=== PATIENT | male | born 1980 | race Caucasian/White ===

== ENCOUNTER → 2017-11-09 | Outpatient (CLI) | payer OTHER ==
[~2017-11-09] MED LIST: AZIT250 PO; Bactrim Ds Tab1 EACH PO; CEFU250T47; CEPH500 PO; CLIN300 PO; CRUTCH2 USE; CRUTCH4 USE; CYCL10 PO; ERYES400 PO; HYDACE5 PO; HYDACE5325 PO; HYDR1TAB94 PO; IBUP600 PO; IBUP800 PO; LINE600 PO; META800 PO; Monodox100 MG PO; NAPR500 PO; Norco 5-325 Ta1 EACH PO; RXHYDACE PO; SULTRIDS PO
[2017-11-10 15:17] LABS: Source Urine
[2017-11-12 11:17] LABS: HCV Non Reactive (NR)
== END ==
LOC: LAB EV 13:55
PROVIDERS: General Practice
DX: Z72.51 High risk heterosexual behavior (principal)
CPT/HCPCS: 80074; 86592; 87389; 87491; 87591; 87661

== ENCOUNTER 2018-04-27 13:00 | Emergency (ER) | payer OTHER ==
[~2018-04-27] VITALS: Ht 177.8 cm; Wt 99.8 kg
[~2018-04-27 13:00] MED LIST changes: -Bactrim Ds Tab1 EACH PO; -CEFU250T47; -LINE600 PO; -Monodox100 MG PO
[2018-04-27 13:29] LABS: BASOPHILS ABSOLUTE AUTO 0.02 K/mm3 (0.00-0.23); BASOPHILS PERCENT AUTO 0 % (0-2); EOSINOPHILS ABSOLUTE AUTO 0.13 K/mm3 (0.00-0.68); EOSINOPHILS PERCENT AUTO 1 % (0-6); Hematocrit 45.4 % (37.0-53.0); Hemoglobin 15.7 g/dL (13.5-17.5); IMMATURE GRAN ABSOLUTE AUTO 0.02 K/mm3 (0.00-0.10); IMMATURE GRAN PERCENT AUTO 0 % (0-1); LYMPHOCYTES ABSOLUTE AUTO 2.71 K/mm3 (0.84-5.20); LYMPHOCYTES PERCENT AUTO 27 % (21-46); MONOCYTES ABSOLUTE AUTO 0.87 K/mm3 (0.16-1.47); MONOCYTES PERCENT AUTO 9 % (4-13); Mean Corpuscular HGB Conc 34.6 g/dL (31.5-36.5); Mean Corpuscular Volume 87 fL (80-100); NEUTROPHILS ABSOLUTE AUTO 6.17 K/mm3 (1.96-9.15); NEUTROPHILS PERCENT AUTO 62 % (41-73); Platelet Count 344 K/mm3 (150-400); RDW Coefficient Variation 12.4 % (11.7-14.2); Red Blood Cell Count 5.24 M/mm3 (4.30-5.90); White Blood Cell Count 9.92 K/mm3 (4.00-11.30)
[2018-04-27 13:47] LABS: Alanine Aminotransfer (ALT/SGP 43 U/L (12-78); Albumin, Blood 3.7 g/dL (3.4-5.0); Albumin/Globulin Ratio 0.9 (0.8-1.8); Alk Phos 108 U/L (50-136); Anion Gap 8 mmol/L (6-16); Aspartate Aminotrans (AST/SGOT 23 U/L (12-37); Bilirubin, Total 0.9 mg/dL (0.1-1.0); Blood Urea Nitrogen 12 mg/dL (8-24); Bun/Creatinine Ratio 10.1 (12.0-20.0); CO2, Blood 29 mmol/L (21-32); Calcium, Blood 8.8 mg/dL (8.5-10.1); Chloride, Blood 104 mmol/L (98-108); Creatinine, Blood 1.19 mg/dL (0.60-1.20); Globulin, Blood 3.9 g/dL (2.2-4.0); Glomerular Filtration Rate >60 (60-); Glucose, Blood 106 mg/dL (70-99); Potassium, Blood 3.7 mmol/L (3.5-5.5); Sodium, Blood 141 mmol/L (136-145); Total Protein, Blood 7.6 g/dL (6.4-8.2)
[2018-04-27] MEDS ORDERED: HYDR1TAB94 PO (16:16)
== END 2018-04-27 16:32 | disposition home or self-care (01) ==
LOC: ER 13:00
PROVIDERS: Emergency Medicine
DX: R10.12 Left upper quadrant pain (principal); M79.81 Nontraumatic hematoma of soft tissue; F17.210 Nicotine dependence, cigarettes, uncomplicated; Z88.0 Allergy status to penicillin; Z87.442 Personal history of urinary calculi
CPT/HCPCS: 36415; 74176; 80053; 81000; 83690; 85025; 99284-25

== ENCOUNTER → 2018-07-07 | Outpatient (CLI) | payer OTHER ==
[~2018-07-07] MED LIST changes: +Bactrim Ds Tab1 EACH PO; +CEFU250T47; +LINE600 PO; +Monodox100 MG PO
== END | disposition home or self-care (01) ==
LOC: LAB EV 15:04 → LAB SHORT 15:04
DX: L03.119 Cellulitis of unspecified part of limb (principal)
CPT/HCPCS: 87070; 87075; 87205

== ENCOUNTER 2019-05-24 22:22 | Emergency (ER) | payer SELFPAY ==
[~2019-05-24] VITALS: Ht 177.8 cm; Wt 95.2 kg
[2019-05-25] MEDS ORDERED: IBU800 MG PO (00:04)
[2019-05-25] MEDS ORDERED: Norco 5-325 Ta1 EACH PO (00:04)
== END 2019-05-25 00:31 | disposition home or self-care (01) ==
LOC: ER 22:22
DX: S76.311A Strain of muscle, fascia and tendon of the posterior muscle group at thigh level, right thigh, initial encounter (principal); Z88.0 Allergy status to penicillin; Z87.442 Personal history of urinary calculi; X58.XXXA Exposure to other specified factors, initial encounter; Y93.55 Activity, bike riding
CPT/HCPCS: 73562-RT; 99283-25; A9270

== ENCOUNTER 2019-09-24 13:50 | Emergency (ER) | payer OTHER ==
[~2019-09-24] VITALS: Ht 177.8 cm; Wt 99.8 kg
[~2019-09-24 13:50] MED LIST changes: +IBU800 MG PO
[2019-09-24] MEDS ORDERED: Norco 5-325 Ta1 EACH PO (14:56)
== END 2019-09-24 15:11 | disposition home or self-care (01) ==
LOC: ER 13:50
DX: S62.324A Displaced fracture of shaft of fourth metacarpal bone, right hand, initial encounter for closed fracture (principal); Z88.0 Allergy status to penicillin; Z87.442 Personal history of urinary calculi; F17.210 Nicotine dependence, cigarettes, uncomplicated; W54.8XXA Other contact with dog, initial encounter
CPT/HCPCS: 29125; 73130; 99283-25

== ENCOUNTER 2020-09-21 16:03 | Emergency (ER) | payer OTHER ==
[~2020-09-21] VITALS: Ht 177.8 cm; Wt 99.8 kg
[2020-09-21] MEDS ORDERED: AMOCLA875 PO (16:41)
[2020-09-21] MEDS ORDERED: Norco 5-325 Ta1 EACH PO (17:27)
== END 2020-09-21 17:59 | disposition home or self-care (01) ==
LOC: ER 16:03
DX: S51.851A Open bite of right forearm, initial encounter (principal); F17.210 Nicotine dependence, cigarettes, uncomplicated; Z88.0 Allergy status to penicillin; Z87.442 Personal history of urinary calculi; W54.0XXA Bitten by dog, initial encounter
CPT/HCPCS: 12032; 73090; 99283-25; A9270-GY

== ENCOUNTER 2020-09-25 16:17 | Emergency (ER) | payer OTHER ==
[~2020-09-25] VITALS: Ht 177.8 cm; Wt 102.1 kg
[~2020-09-25 16:17] MED LIST changes: +AMOCLA875 PO
[2020-09-25] MEDS ORDERED: Cipro500 MG PO (17:00)
[2020-09-25] MEDS ORDERED: Cleocin HCl150 MG PO (17:00)
== END 2020-09-25 17:13 | disposition home or self-care (01) ==
LOC: ER 16:17
DX: S51.851A Open bite of right forearm, initial encounter (principal); F17.200 Nicotine dependence, unspecified, uncomplicated; Z88.0 Allergy status to penicillin; W54.0XXA Bitten by dog, initial encounter
CPT/HCPCS: 99282

== ENCOUNTER 2021-10-18 18:16 | Emergency (ER) | payer OTHER ==
[~2021-10-18] VITALS: Ht 167.6 cm; Wt 108.9 kg
[~2021-10-18 18:16] MED LIST changes: +Cipro500 MG PO; +Cleocin HCl150 MG PO
[2021-10-18] MEDS ORDERED: CRUTCH2 XX (19:51)
[2021-10-18] MEDS ORDERED: Crutch1 EACH XX (19:54)
== END 2021-10-18 20:11 | disposition home or self-care (01) ==
LOC: ER 18:16
DX: M16.12 Unilateral primary osteoarthritis, left hip (principal); M87.9 Osteonecrosis, unspecified; Z88.0 Allergy status to penicillin; F17.210 Nicotine dependence, cigarettes, uncomplicated
CPT/HCPCS: 73502; A9270; J1885

== ENCOUNTER → 2023-02-16 | Outpatient (CLI) | payer OTHER ==
[~2023-02-16] MED LIST changes: +CRUTCH2 XX; +Crutch1 EACH XX
[2023-02-16 17:42] LABS: BASOPHILS ABSOLUTE AUTO 0.05 K/mm3 (0.00-0.23); BASOPHILS PERCENT AUTO 1 % (0-2); EOSINOPHILS ABSOLUTE AUTO 0.19 K/mm3 (0.00-0.68); EOSINOPHILS PERCENT AUTO 2 % (0-6); Hematocrit 44.2 % (37.0-53.0); Hemoglobin 15.5 g/dL (13.5-17.5); IMMATURE GRAN ABSOLUTE AUTO 0.02 K/mm3 (0.00-0.10); IMMATURE GRAN PERCENT AUTO 0 % (0-1); LYMPHOCYTES ABSOLUTE AUTO 2.38 K/mm3 (0.84-5.20); LYMPHOCYTES PERCENT AUTO 31 % (21-46); MONOCYTES ABSOLUTE AUTO 0.93 K/mm3 (0.16-1.47); MONOCYTES PERCENT AUTO 12 % (4-13); Mean Corpuscular HGB 29.4 pg (26.0-34.0); Mean Corpuscular HGB Conc 35.1 g/dL (31.5-36.5); Mean Corpuscular Volume 84 fL (80-100); Mean Platelet Volume 9.1 fL (9.1-12.4); NEUTROPHILS ABSOLUTE AUTO 4.24 K/mm3 (1.96-9.15); NEUTROPHILS PERCENT AUTO 54 % (41-73); Platelet Count 299 K/mm3 (150-400); RDW Standard Deviation 39.8 fL (35.1-46.3); Red Blood Cell Count 5.27 M/mm3 (4.30-5.90); White Blood Cell Count 7.81 K/mm3 (4.00-11.30)
[2023-02-16 17:53] LABS: Albumin, Blood 3.5 g/dL (3.4-5.0); Albumin/Globulin Ratio 0.9 (0.8-1.8); Bilirubin, Total 0.4 mg/dL (0.1-1.0); Bun/Creatinine Ratio 13.8 (12.0-20.0); Calcium, Blood 9.4 mg/dL (8.5-10.1); Creatinine, Blood 1.3 mg/dL (0.60-1.20); Globulin, Blood 3.7 g/dL (2.2-4.0); Potassium, Blood 4.2 mmol/L (3.5-5.5); Total Protein, Blood 7.2 g/dL (6.4-8.2)
== END | disposition home or self-care (01) ==
LOC: LAB 17:34 → LAB SHORT 17:34
PROVIDERS: Chiropractor
DX: I10 Essential (primary) hypertension (principal); R60.0 Localized edema; R53.83 Other fatigue
CPT/HCPCS: 80053; 83036; 83880; 84443; 84484; 85025

== ENCOUNTER 2023-03-06 05:45 | Day surgery (SDC) | payer OTHER ==
[~2023-03-06] VITALS: Ht 172.7 cm; Wt 112.1 kg
[2023-03-06] VITALS (26 sets, daily range): BP systolic 106–165; BP diastolic 73–118
[~2023-03-06 05:45] MED LIST changes: +AMLODIPINE BES2.5 MG PO; +BP MED PO
--- NOTE | 2023-03-06 06:53 | NUR ---
Wheelchaired into Day Surgery. History, Chart, Medications and Allergies reviewed before start of procedure. Pre-Op teaching done. Pt verbalizes understanding.
[2023-03-06] MEDS ORDERED: Aspir 8181 MG PO ×2 (10:37→14:53)
--- NOTE | 2023-03-06 12:21 | NUR ---
ARRIVAL TO ROOM PT A&OX4, PLEASANT, AND APPROPRIATE. AQUACEL DRESSING IN PLACE THAT IS CDI AND POLAR PACK ON. PT HAS 2L O2 NASAL CANNULA, DENIES SOB AND CHEST PAIN. PT DROWSY, BUT EASILY ARROUSABLE AND RESPONDS APPROPRIATELY. PT REPORTED PAIN AND WILL MEDICATE PER EMAR. PT IS TOLERATING PO. WILL CONTINUE TO MONITOR.
--- NOTE | 2023-03-06 13:00 | NUR ---
PT WEANED OFF OF O2. NOW ON RA.
[2023-03-06] MEDS ORDERED: Percocet 5-3251 EACH PO (14:52)
--- NOTE | 2023-03-06 17:08 | NUR ---
DISCHARGE PT DISCHARGED AT APPROX 1715. PT WAS PROVIDED WITH WRITTEN AND VERBAL INSTRUCTIONS. PT AND FAMILY REPORTED UNDERSTANDING. PT WAS PROVIDED WITH AQUACELL DRESSINGS AND PRESCRIPTIONS. PT WAS A&OX4, VSS, VOIDING, TOLERATING PO, AMB, AND PAIN MANAGED WITH TYLENOL AND OXY. PT'S BELONGINGS WERE RETURNED AND ESCOURTED OUT IN W/C.
== END 2023-03-06 17:15 | disposition home or self-care (01) ==
LOC: ORSCMMR 05:45 → ORD 09:15 → SURS 11:01 → ORD 12:00 → ORSCMMR 17:15
PROVIDERS: Orthopaedic Surgery
PROC: 0SRB0JZ Replacement of Left Hip Joint with Synthetic Substitute, Open Approach (ICD-10-PCS; principal; 2023-03-06 07:30)
DX: M16.12 Unilateral primary osteoarthritis, left hip (principal); M87.9 Osteonecrosis, unspecified; I10 Essential (primary) hypertension; E66.9 Obesity, unspecified; Z68.35 Body mass index [BMI] 35.0-35.9, adult; Z87.891 Personal history of nicotine dependence; Z79.899 Other long term (current) drug therapy
CPT/HCPCS: 27130; 0055T; 72170; 97110; 97116; 97161; A9270; C1776; J0171; J0690; J0735; J0780; J1100; J1885; J2250; J2370; J2405; J2704; J2765; J2795; J3010; J3370; J7120

== ENCOUNTER 2023-09-02 02:30 | Emergency (ER) | payer OTHER ==
[~2023-09-02] VITALS: Ht 177.8 cm; Wt 108.9 kg
[~2023-09-02 02:30] MED LIST changes: +Aspir 8181 MG PO; +Percocet 5-3251 EACH PO
[2023-09-02 03:15] VITALS: BP 183/115
[2023-09-02] MEDS ORDERED: Keflex500 MG PO (03:20)
[2023-09-02] MEDS ORDERED: Bactrim Ds Tab1 EACH PO (03:20)
== END 2023-09-02 03:33 | disposition home or self-care (01) ==
LOC: ER 02:30
DX: L03.115 Cellulitis of right lower limb (principal); F17.210 Nicotine dependence, cigarettes, uncomplicated; Z88.0 Allergy status to penicillin; Z79.82 Long term (current) use of aspirin; Z79.899 Other long term (current) drug therapy; Z87.442 Personal history of urinary calculi
CPT/HCPCS: 99283; A9270

== ENCOUNTER 2024-07-13 20:04 | Emergency (ER) | payer SELFPAY ==
[~2024-07-13] VITALS: Ht 177.8 cm; Wt 104.3 kg
[~2024-07-13 20:04] MED LIST changes: +Keflex500 MG PO
[2024-07-13 20:27] VITALS: BP 185/123
[2024-07-13] MEDS ORDERED: Ketorolac Tromethamine 15mg Vial IM ONE (22:50)
[2024-07-13] MEDS ORDERED: Lidocaine 4% 1 Patch TOP ONE (22:50)
[2024-07-13] MEDS ORDERED: ASPERFLEX1 EACH TOP (22:53)
[2024-07-13] MEDS ORDERED: Robaxin750 MG PO (22:54)
[2024-07-13] MEDS ORDERED: HYDROcodone 5-APAP 325 TAB PO ONE (22:55)
== END 2024-07-13 23:05 | disposition home or self-care (01) ==
LOC: ER 20:04
DX: M25.511 Pain in right shoulder (principal); F17.210 Nicotine dependence, cigarettes, uncomplicated; Z88.0 Allergy status to penicillin
CPT/HCPCS: 96372; 99283-25; A9270; J1885

== ENCOUNTER 2025-04-23 01:41 | Emergency (ER) | payer OTHER ==
[~2025-04-23] VITALS: Ht 177.8 cm; Wt 108.9 kg
[~2025-04-23 01:41] MED LIST changes: +ASPERFLEX1 EACH TOP; +Robaxin750 MG PO
[2025-04-23] MEDS ORDERED: Lidocaine 4% 1 Patch TOP ONE (02:10)
[2025-04-23] MEDS ORDERED: LIDO700A20 TOP (02:14)
[2025-04-23] MEDS ORDERED: DIAZ2 PO (02:14)
[2025-04-23] MEDS ORDERED: AMLO10 PO (02:17)
[2025-04-23 02:52] VITALS: BP 190/121
== END 2025-04-23 02:53 | disposition home or self-care (01) ==
LOC: ER 01:41
DX: S29.012A Strain of muscle and tendon of back wall of thorax, initial encounter (principal); I10 Essential (primary) hypertension; V89.2XXA Person injured in unspecified motor-vehicle accident, traffic, initial encounter; Z68.34 Body mass index [BMI] 34.0-34.9, adult; F17.210 Nicotine dependence, cigarettes, uncomplicated; Z79.899 Other long term (current) drug therapy; Z88.0 Allergy status to penicillin
CPT/HCPCS: 71046; 99283-25; A9270

== ENCOUNTER 2025-10-08 16:25 | Emergency (ER) | payer OTHER ==
[~2025-10-08] VITALS: Ht 177.8 cm; Wt 113.4 kg
[~2025-10-08 16:25] MED LIST changes: +AMLO10 PO; +DIAZ2 PO; +LIDO700A20 TOP
[2025-10-08 16:46] VITALS: BP 197/13
[2025-10-08 19:18] LABS: Influenza A, PCR NEGATIVE (NEGATIVE); Influenza B, PCR NEGATIVE (NEGATIVE); Resp Syncytial Virus, PCR NEGATIVE (NEGATIVE)
[2025-10-08 23:59] LABS: SARS-Cov-2 (COVID-19) PCR, MMC POSITIVE (NEGATIVE)
== END 2025-10-08 20:30 | disposition left against medical advice (07) ==
LOC: ER 16:25
PROVIDERS: Emergency Medicine
DX: R50.9 Fever, unspecified (principal); R09.81 Nasal congestion; Z53.29 Procedure and treatment not carried out because of patient's decision for other reasons; I10 Essential (primary) hypertension; F17.210 Nicotine dependence, cigarettes, uncomplicated; Z79.899 Other long term (current) drug therapy
CPT/HCPCS: 71045; 87637; 99283-25; A9270